=== PATIENT | female | born 1990 | race Asian ===

== ENCOUNTER 2022-06-17 11:37 | Emergency (ER) | payer BC ==
[2022-06-17] MEDS ORDERED: Tetracaine 0.5% PF 4 ML BOT ONE (12:00)
[2022-06-17] MEDS ORDERED: Fluorescein Opthalmic Strip ONE (12:01)
== END 2022-06-17 12:40 | disposition home or self-care (01) ==
LOC: CSHERS 11:37
DX: H10.12 Acute atopic conjunctivitis, left eye (principal)
CPT/HCPCS: 99283

== ENCOUNTER 2023-11-28 14:09 | Emergency (ER) | payer BC ==
[2023-11-28] MEDS ORDERED: Ondansetron PF 4 MG/2 ML Vial ONE (14:52)
[2023-11-28] MEDS ORDERED: Mineral Oil ENEMA ONE (15:11)
[2023-11-28 15:22] LABS: #Eosinphils 0.3 10x3/uL (0.0-0.5); #Monocytes 0.5 10x3/uL (0.0-1.1); #Neutrophils 5.8 10x3/uL (1.5-8.4); %Basophils 0.4 % (0.0-2.0); %Eosinophils 3.2 % (0.0-6.0); %Lymphocytes 18.3 % (18.0-47.0); %Monocytes 5.9 % (0.0-10.0); %Neutrophils 71.8 % (40.0-75.0); Hematocrit 36.3 % (34.9-44.5); Hemoglobin 12.8 g/dL (12.0-15.5); Mean Corpuscular HGB CONC 35.3 g/dL (32.0-36.0); Mean Corpuscular Hemoglobin 32.7 pg (27.0-33.0); Mean Corpuscular Volume 92.6 fl (81.6-98.3); Mean Platelet Volume 8.8 fl (7.4-10.4); Platelet Count 227 10x3/uL (150-450); RBC Distribution Width 12.6 % (11.5-14.5); Red Blood Cell (RBC) Count 3.92 10x6/uL (3.90-5.03)
[2023-11-28 15:45] LABS: ALT (SGPT) 7 U/L (8-55); AST (SGOT) 14 U/L (5-34); Albumin 4.1 g/dL (3.5-5.0); Alkaline Phosphatase 37 U/L (40-110); Anion Gap 11 mmol/L (10-20); BUN (Urea Nitrogen) 7 mg/dL (7.0-18.7); Bilirubin, Total 0.5 mg/dL (0.2-1.2); Calc. Creatinine Clearance 0 mL/min (70-130); Calcium 8.6 mg/dL (7.8-10.44); Carbon Dioxide 23 mmol/L (22-29); Chloride 104 mmol/L (98-107); Estimated GFR 120; Globulin 2.9 g/dL (2.4-3.5); Glucose 93 mg/dL (70-105); Potassium 3.9 mmol/L (3.5-5.1); Sodium 134 mmol/L (136-145)
== END 2023-11-28 16:42 | disposition home or self-care (01) ==
LOC: CSHERS 14:09
DX: O99.611 Diseases of the digestive system complicating pregnancy, first trimester (principal); K59.00 Constipation, unspecified; Z3A.12 12 weeks gestation of pregnancy
CPT/HCPCS: 80053; 85025; 99283; J2405

== ENCOUNTER 2024-09-14 08:56 | Day surgery (SDC) | payer BC ==
[2024-09-07 12:32] VITALS: BMI 24.9
[2024-09-14] MEDS ORDERED: Bupivacaine/Epinephrine 0.25% 30 ML VIAL ONE (09:14)
[2024-09-14] MEDS ORDERED: Lidocaine 2% MPF 10 ML AMP (For Epidural Use) ONE (09:14)
[2024-09-14] MEDS ORDERED: PROPOFOL 20 ML ONE (10:39)
[2024-09-14] MEDS ORDERED: fentaNYL 50 mcg/mL 1 mL Vial ONE (10:39)
[2024-09-14] MEDS ORDERED: Lidocaine 1% PF 5 ML VIAL ONE (10:40)
[2024-09-14] MEDS ORDERED: PHENYLEPHRINE-NS 100 MCG/ML 10 ML SYRINGE ONE (10:51)
[2024-09-14] MEDS ORDERED: Ondansetron PF 4 MG/2 ML Vial ONE (10:56)
[2024-09-14] MEDS ORDERED: HYDROcodone/Acetaminophen 5/325 mg Tablet ONE (12:39)
== END 2024-09-14 13:00 | disposition home or self-care (01) ==
LOC: CSHSDC 08:56
PROVIDERS: ATTEND Surgery
PROC: 06BY0ZC Excision of Hemorrhoidal Plexus, Open Approach (ICD-10-PCS; principal; 2024-09-14)
DX: K64.3 Fourth degree hemorrhoids (principal); K64.4 Residual hemorrhoidal skin tags; J45.909 Unspecified asthma, uncomplicated; Z90.49 Acquired absence of other specified parts of digestive tract; Z88.1 Allergy status to other antibiotic agents; Z91.040 Latex allergy status
CPT/HCPCS: 88304; J2405; J2704; J3010